=== PATIENT | male | born 2000 | race African-American/Black ===

== ENCOUNTER 2023-03-28 06:21 | Emergency (ER) | payer SELFPAY ==
[~2023-03-28] VITALS: Ht 175.3 cm; Wt 111.0 kg
[2023-03-28 06:37] VITALS: TEMP 98; O2SAT 99
[2023-03-28 08:45] VITALS: BP 117/68; PULSE 68; RESP 14
[2023-03-28] MEDS ORDERED: IBUPROFEN 600MG TABLET PO ONE (08:45)
[2023-03-28] MEDS ORDERED: NAPR-1129 MT (08:46)
== END 2023-03-28 09:06 | disposition home or self-care (01) ==
LOC: ER 06:33
DX: M79.652 Pain in left thigh (principal)
CPT/HCPCS: 99282

== ENCOUNTER 2023-04-14 07:31 | Emergency (ER) | payer MEDICAID ==
[~2023-04-14] VITALS: Ht 175.3 cm; Wt 109.0 kg
[~2023-04-14 07:31] MED LIST: NAPR-1129 MT
[2023-04-14 07:40] VITALS: O2SAT 98
[2023-04-14] MEDS ORDERED: ACETAMINOPHEN 325MG TABLET PO NR (08:00)
[2023-04-14 09:24] LABS: BASOPHILS % 0.3 % (0.0-2.0); EOSINOPHILS % 0.3 % (0.0-5.0); HEMATOCRIT. 41.4 % (42.0-52.0); HEMOGLOBIN. 14.1 g/dL (14.0-18.0); LYMPHOCYTES % 23.9 % (20.0-50.0); MEAN CORPUSCULAR HEMOGLOBIN 29.4 pg (28.0-32.0); MEAN CORPUSCULAR HGB CONC 34.1 g/dL (31.0-37.0); MEAN CORPUSCULAR VOLUME 86.2 fL (80.0-94.0); MEAN PLATELET VOLUME 9.5 fl (7.4-10.4); MONOCYTES % 7.8 % (2.0-8.0); NEUTROPHILS % 67.7 % (40.0-76.0); PLATELET 241 x1000/uL (130-400); RED BLOOD CELL COUNT 4.81 mill/uL (4.7-6.1); WHITE BLOOD COUNT 8.6 x1000/uL (4.5-11.0)
[2023-04-14 09:29] VITALS: BP 125/79; PULSE 65; RESP 19; TEMP 98.4
== END 2023-04-14 09:30 | disposition home or self-care (01) ==
LOC: ER 07:31
DX: M25.552 Pain in left hip (principal); R00.2 Palpitations
CPT/HCPCS: 36415; 72170; 74176; 85025; 99285